=== PATIENT | female | born 1955 | race Caucasian/White ===

== ENCOUNTER 2022-02-03 08:00 | Inpatient (IN) ==
[2022-02-03] MEDS ORDERED: Naloxone 0.4 MG/ML INJ IVP PRN (11:58)
[2022-02-03] MEDS ORDERED: Melatonin 3 MG TABLET PO PRN (11:58)
[2022-02-03] MEDS: DilTIAZem CD (24hr) 120 MG CAP.ER.24H PO SCH (12:32)
[2022-02-03 12:39] LABS: BUN/Creatinine Ratio 16 (6-26); Blood Urea Nitrogen 14 mg/dL (8-23); Calcium 8.9 mg/dL (8.6-10.3); Carbon Dioxide 28 mEq/L (23-29); Chloride 101 mEq/L (98-107); Glucose 108 mg/dL (70-105); Osmolality,Calculated 285 (280-300); Potassium 3.4 mEq/L (3.5-5.1); Sodium 137 mEq/L (136-145); eGFR For African Americans > 60 (> 60); eGFR For Non-African Americans > 60 (> 60)
[2022-02-03 12:40] LABS: Magnesium 1.9 mg/dL (1.6-2.6)
[2022-02-03 13:04] LABS: Troponin I 0.09 ng/mL (< 0.04)
[2022-02-03] MEDS ORDERED: Benzonatate 100 MG CAPSULE PO PRN (13:39)
[2022-02-03] MEDS ORDERED: Aspirin 325 MG TABLET PO ONE (13:40)
[2022-02-03] MEDS ORDERED: *HR* Metoprolol 5 MG/5 ML VIAL IVP PRN (16:51)
[2022-02-03] MEDS: Apixaban 5 MG TABLET PO SCH (20:17)
[2022-02-04 06:06] LABS: Hematocrit 39.1 % (35.3-44.9); Mean Corpuscular HGB Conc 33.2 g/dL (31.6-35.5); Mean Corpuscular Hemoglobin 32.3 pg (28.0-33.3); Mean Platelet Volume 9.5 fL (9.4-12.4); Platelet Count 272 K/mcL (140-400); Red Blood Count 4.03 M/mcL (3.82-4.97); Red Cell Distribution Width 14.1 % (11.5-14.5); White Blood Count 10.3 K/mcL (4.3-11.1)
[2022-02-04 06:23] LABS: BUN/Creatinine Ratio 12 (6-26); Blood Urea Nitrogen 9 mg/dL (8-23); Calcium 8.8 mg/dL (8.6-10.3); Carbon Dioxide 30 mEq/L (23-29); Chloride 101 mEq/L (98-107); Glucose 124 mg/dL (70-105); Magnesium 1.9 mg/dL (1.6-2.6); Osmolality,Calculated 284 (280-300); Phosphorous 3.7 mg/dL (2.7-4.5); Potassium 3.5 mEq/L (3.5-5.1); Sodium 137 mEq/L (136-145); eGFR For African Americans > 60 (> 60); eGFR For Non-African Americans > 60 (> 60)
[2022-02-04] MEDS: DilTIAZem CD (24hr) 120 MG CAP.ER.24H PO SCH (07:32)
[2022-02-04] MEDS: Aspirin 81 MG TAB.CHEW PO SCH (07:32)
[2022-02-04] MEDS: Apixaban 5 MG TABLET PO SCH ×2 (07:32→20:12)
[2022-02-04] MEDS: PARoxetine 20 MG TABLET PO SCH (07:33)
[2022-02-04] MEDS: Propranolol LA (24 HR) 60 MG CAP.SA.24H PO SCH (07:33)
[2022-02-04] MEDS ORDERED: hydroCHLOROthiazide 25 MG TABLET PO SCH (10:45)
[2022-02-04] MEDS: Losartan/HCTZ 50-12.5 TABLET PO SCH (11:50)
[2022-02-04] MEDS: Acyclovir 200 MG CAPSULE PO SCH (20:12)
[2022-02-05 06:00] LABS: BUN/Creatinine Ratio 14 (6-26); Blood Urea Nitrogen 10 mg/dL (8-23); Calcium 9.1 mg/dL (8.6-10.3); Carbon Dioxide 28 mEq/L (23-29); Chloride 102 mEq/L (98-107); Glucose 123 mg/dL (70-105); Magnesium 1.9 mg/dL (1.6-2.6); Osmolality,Calculated 286 (280-300); Potassium 3.5 mEq/L (3.5-5.1); Sodium 138 mEq/L (136-145); Troponin I 0.03 ng/mL (< 0.04); eGFR For African Americans > 60 (> 60); eGFR For Non-African Americans > 60 (> 60)
[2022-02-05 06:17] LABS: Estimated Average Glucose 126 mg/dl
[2022-02-05 06:53] VITALS: BP 176/96; PULSE 74; TEMP 98; O2SAT 97
[2022-02-05] MEDS: Losartan/HCTZ 50-12.5 TABLET PO SCH (07:32)
[2022-02-05] MEDS: Acyclovir 200 MG CAPSULE PO SCH (07:32)
[2022-02-05] MEDS: Aspirin 81 MG TAB.CHEW PO SCH (07:33)
[2022-02-05] MEDS: PARoxetine 20 MG TABLET PO SCH (07:33)
[2022-02-05] MEDS: Propranolol LA (24 HR) 60 MG CAP.SA.24H PO SCH (07:33)
[2022-02-05] MEDS: Apixaban 5 MG TABLET PO SCH (07:33)
[2022-02-05] MEDS: DilTIAZem CD (24hr) 120 MG CAP.ER.24H PO SCH (07:33)
[2022-02-05] MEDS ORDERED: Famotidine 20 MG TABLET PO SCH (09:00)
[2022-02-05] MEDS ORDERED: Folic Acid 1 MG TABLET PO SCH (09:00)
[2022-02-05] MEDS ORDERED: Cholecalciferol (D-3) 1,000 UNIT (25MCG) TABLET PO SCH (09:00)
== END 2022-02-05 11:45 | disposition home or self-care (01) | DRG 282 ==
LOC: 2ANU
PROVIDERS: ADMIT Internal Medicine; ATTEND Internal Medicine